=== PATIENT | female | born 1980 | race Caucasian/White ===

== ENCOUNTER 2017-03-01 12:06 | Inpatient (IN) | payer BC ==
[2017-03-01] MEDS ORDERED: NS 0.9% 1000 ML* 1,000 ML IV ONE (12:26)
[2017-03-01] MEDS ORDERED: Magnesium Sulfate 1 GM IV* 1 GM/100 ML BAG IV ONE (12:28)
[2017-03-01 12:49] LABS: ABS Basophils 0.1 10^3/ul (0-0.2); ABS Eosinophils 0.3 10^3/ul (0-0.6); ABS Monocytes 0.8 10^3/ul (0-0.8); ABS Neutrophils 11.7 10^3/ul (1.5-7.7); ABS Nucleated RBC 0 10^3/ul; Eosinophil % 2.5 % (0-6); Hematocrit 48 % (35-47); Hemoglobin 16.5 g/dl (12.0-16.0); Lymphocyte % 7.4 % (25-47); Mean Corpuscular HGB Conc 35 g/dl (31-36); Mean Corpuscular Hemoglobin 33 pg (27-31); Mean Corpuscular Volume 96 fL (80-97); Mean Platelet Volume 8 um3 (7.4-10.4); Nucleated Red Blood Cells % 0; Platelet Count 302 10^3/ul (150-450); Red Blood Count 4.97 10^6/ul (4.0-5.4); Red Cell Distribution Width 12 % (10.5-15)
[2017-03-01] MEDS ORDERED: Magnesium Sulfate 2 GM IV* 2 GM/50 ML BAG ONE (12:54)
[2017-03-01 13:00] LABS: EGFR Non-African American 105.8 (>60)
[2017-03-01] MEDS ORDERED: Magnesium Sulfate 2 GM IV* 2 GM/50 ML BAG IVPB ONE (13:01)
[2017-03-01] MEDS: Albuterol/Ipratropium NEB.SOL* Albuterol 2.5 MG/Ipratropium 0.5 MG 3 ML INH SCH ×2 (13:05→13:06)
--- NOTE | 2017-03-01 13:36 | RAD ---
Indication: Shortness of breath, asthma. Comparison: January 29, 2014 Technique: Upright AP 1300 hours Report: Elevated lung volumes. No focal pulmonary lesion, compelling alveolar consolidation, pleural effusion, pneumothorax. The heart, pulmonary vasculature, and mediastinal contours are unremarkable. IMPRESSION: Elevated lung volumes suggest potential obstructive lung disease corresponding with history of asthma. No compelling evidence for pneumonia or other acute intrathoracic process.
--- NOTE | 2017-03-01 15:04 | ED ---
Chico Clark Tecjoon, scribed for Shelton Lara MD on 03/01/17 at 1225 . Shortness of Breath - HPI Summary HPI Summary: This patient is a 37 year old female presenting to [facility] with a chief complaint of SOB since 3 days ago. Patient states she has asthma and is on prednisone. Patient has had an asthma attack for the past 3 days, worsening after she finished her prednisone. Symptoms aggravated by nothing. Symptoms alleviated by medication. Patient additionally reports productive cough with green phlegm, diaphoresis, wheezing. Patient denies fever, chills. Patient denies a PMHx of COPD. - History of Current Complaint Chief Complaint: EDShortnessOfBreath Time Seen by Provider: 03/01/17 12:15 Hx Obtained From: Patient Onset/Duration: Sudden Onset, Lasting Days - 3, Still Present, Worse Since - finishing prednisone Timing: Intermittent Episodes Lasting: Aggrevating Factors: Nothing Alleviating Factors: OTC Meds, Other - prednisone Associated Signs & Symptoms: Cough (Productive) - green phlegm, Wheezing, Diaphoresis - Allergy/Home Medications Allergies/Adverse Reactions: Allergies Allergy/AdvReac Type Severity Reaction Status Date / Time No Known Allergies Allergy Verified 01/29/14 08:07 PMH/Surg Hx/FS Hx/Imm Hx Previously Healthy: Yes Endocrine/Hematology History: Denies: Hx Diabetes Cardiovascular History: Denies: Hx Hypertension Respiratory History: Reports: Hx Asthma Denies: Hx Chronic Obstructive Pulmonary Disease (COPD) GI History: Denies: Hx Ulcer Sensory History: Reports: Hx Contacts or Glasses Opthamlomology History: Reports: Hx Contacts or Glasses - Surgical History Surgery Procedure, Year, and Place: [place] teeth x 4 removal - Immunization History Date of Tetanus Vaccine: UTD Date of Influenza Vaccine: NO Infectious Disease History: No Infectious Disease History: Denies: Hx Clostridium Difficile, Hx Hepatitis, Hx Human Immunodeficiency Virus (HIV), Hx of Known/Suspected MRSA, Hx Shingles, Hx Tuberculosis, Hx Known/ Suspected VRE, Hx Known/Suspected VRSA, History Other Infectious Disease, Traveled Outside the [place] in Last 30 Days - Family History Known Family History: Positive: Other - asthma; no fhx of gout Negative: Hypertension - Social History Alcohol Use: Weekly Hx Substance Use: No Substance Use Type: Reports: None Hx Tobacco Use: Yes Smoking Status (MU): Current Some Day Smoker Review of Systems Positive: Skin Diaphoresis. Negative: Fever, Chills Positive: Shortness Of Breath, Cough - productive, with green phlegm, Other - wheezing All Other Systems Reviewed And Are Negative: Yes Physical Exam - Summary Physical Exam Summary: VITAL SIGNS: Reviewed. GENERAL: Patient is a well developed and nourished female who is lying comfortable in the stretcher. HEAD AND FACE: Normocephalic EYES: PERRLA, EOMI x 2. EARS: Hearing grossly intact. MOUTH: Oropharynx within normal limits. NECK: Supple, trachea is midline, no adenopathy, no JVD, no carotid bruit. CHEST: Symmetric, no tenderness at palpation LUNGS: Bilateral diffuse wheezing. Able to speak in full sentences. CVS: Regular rate and rhythm, S1 and S2 present, no murmurs or gallops appreciated. ABDOMEN: Soft, non-tender. Bowel sounds are normal. No abdominal abnormal pulsations. EXTREMITIES: Full ROM in all major joints, no edema, no cyanosis or clubbing. NEURO: Alert and oriented x 3. No acute neurological deficits. Speech is normal and follows commands. SKIN: Dry and warm Triage Information Reviewed: Yes Vital Signs On Initial Exam: Initial Vitals Temp Pulse Resp BP Pulse Ox 98 F 119 26 121/64 90 03/01/17 12:12 03/01/17 12:12 03/01/17 12:12 03/01/17 12:12 03/01/17 12:12 Vital Signs Reviewed: Yes - [place]farlan Coma Scale Coma Scale Total: 15 Diagnostics - Vital Signs Vital Signs Temp Pulse Resp BP Pulse Ox 03/01/17 12:12 98 F 119 26 121/64 90 - Laboratory Lab Results: Lab Results 03/01/17 03/01/17 03/01/17 Range/Units 12:39 12:39 12:39 WBC 14.0 H (3.5-10.8) 10^3/ul RBC 4.97 (4.0-5.4) 10^6/ul Hgb 16.5 H (12.0-16.0) g/dl Hct 48 H (35-47) % MCV 96 (80-97) fL MCH 33 H (27-31) pg MCHC 35 (31-36) g/dl RDW 12 (10.5-15) % Plt Count 302 (150-450) 10^3/ul MPV 8 (7.4-10.4) um3 Neut % (Auto) 83.7 H (38-83) % Lymph % (Auto) 7.4 L (25-47) % [place] % (Auto) 6.0 (1-9) % Eos % (Auto) 2.5 (0-6) % Baso % (Auto) 0.4 (0-2) % Absolute Neuts (auto) 11.7 H (1.5-7.7) 10^3/ul Absolute Lymphs (auto) 1.0 (1.0-4.8) 10^3/ul Absolute Monos (auto) 0.8 (0-0.8) 10^3/ul Absolute Eos (auto) 0.3 (0-0.6) 10^3/ul Absolute Basos (auto) 0.1 (0-0.2) 10^3/ul Absolute Nucleated RBC 0 10^3/ul Nucleated RBC % 0 Sodium 136 (133-145) mmol/L Potassium 3.9 (3.5-5.0) mmol/L Chloride 103 (101-111) mmol/L Carbon Dioxide 24 (22-32) mmol/L Anion Gap 9 (2-11) mmol/L BUN 6 (6-24) mg/dL Creatinine 0.63 (0.51-0.95) mg/dL Est GFR ( Amer) 136.0 (>60) Est GFR (Non-Af Amer) 105.8 (>60) BUN/Creatinine Ratio 9.5 (8-20) Glucose 120 H (70-100) mg/dL Lactic Acid (0.5-2.0) mmol/L Calcium 9.9 (8.6-10.3) mg/dL Total Bilirubin 1.00 (0.2-1.0) mg/dL AST 19 (13-39) U/L ALT 31 (7-52) U/L Alkaline Phosphatase 72 (34-104) U/L Troponin I 0.00 (<0.04) ng/mL C-Reactive Protein 59.57 H (< 5.00) mg/L B-Natriuretic Peptide 46 ( - 100) pg/mL Total Protein 7.2 (6.4-8.9) g/dL Albumin 4.3 (3.2-5.2) g/dL Globulin 2.9 (2-4) g/dL Albumin/Globulin Ratio 1.5 (1-3) Influenza A (Rapid) (Negative) Influenza B (Rapid) (Negative) 03/01/17 03/01/17 Range/Units 12:39 13:32 WBC (3.5-10.8) 10^3/ul RBC (4.0-5.4) 10^6/ul Hgb (12.0-16.0) g/dl Hct (35-47) % MCV (80-97) fL MCH (27-31) pg MCHC (31-36) g/dl RDW (10.5-15) % Plt Count (150-450) 10^3/ul MPV (7.4-10.4) um3 Neut % (Auto) (38-83) % Lymph % (Auto) (25-47) % [place] % (Auto) (1-9) % Eos % (Auto) (0-6) % Baso % (Auto) (0-2) % Absolute Neuts (auto) (1.5-7.7) 10^3/ul Absolute Lymphs (auto) (1.0-4.8) 10^3/ul Absolute Monos (auto) (0-0.8) 10^3/ul Absolute Eos (auto) (0-0.6) 10^3/ul Absolute Basos (auto) (0-0.2) 10^3/ul Absolute Nucleated RBC 10^3/ul Nucleated RBC % Sodium (133-145) mmol/L Potassium (3.5-5.0) mmol/L Chloride (101-111) mmol/L Carbon Dioxide (22-32) mmol/L Anion Gap (2-11) mmol/L BUN (6-24) mg/dL Creatinine (0.51-0.95) mg/dL Est GFR ( Amer) (>60) Est GFR (Non-Af Amer) (>60) BUN/Creatinine Ratio (8-20) Glucose (70-100) mg/dL Lactic Acid 0.9 (0.5-2.0) mmol/L Calcium (8.6-10.3) mg/dL Total Bilirubin (0.2-1.0) mg/dL AST (13-39) U/L ALT (7-52) U/L Alkaline Phosphatase (34-104) U/L Troponin I (<0.04) ng/mL C-Reactive Protein (< 5.00) mg/L B-Natriuretic Peptide ( - 100) pg/mL Total Protein (6.4-8.9) g/dL Albumin (3.2-5.2) g/dL Globulin (2-4) g/dL Albumin/Globulin Ratio (1-3) Influenza A (Rapid) Negative (Negative) Influenza B (Rapid) Negative (Negative) Result Diagrams: 03/01/17 12:39 03/01/17 12:39 Lab Statement: Any lab studies that have been ordered have been reviewed, and results considered in the medical decision making process. - Radiology CXR Xray Interpretation: Positive (See Comments) - IMPRESSION: Elevated lung volumes suggest potential obstructive lung disease corresponding with history of asthma. No compelling evidence for pneumonia or other acute intrathoracic process. ED physician has reviewed this radiology report. Radiology Interpretation Completed By: Radiologist Course/Dx - Course Course Of Treatment: This patient is a 37 year old female presenting to [facility] with a chief complaint of SOB since 3 days ago. Patient states she has asthma and is on prednisone. Patient has had an asthma attack for the past 3 days, worsening after she finished her prednisone. Symptoms aggravated by nothing. Symptoms alleviated by medication. Patient additionally reports productive cough with green phlegm, diaphoresis, wheezing. Patient denies fever, chills. Patient denies a PMHx of COPD. CXR reveals, per radiologist, IMPRESSION: Elevated lung volumes suggest potential obstructive lung disease corresponding with history of asthma. No compelling evidence for pneumonia or other acute intrathoracic process. ED physician has reviewed this radiology report. Bloodwork Obtained. Urinalysis Obtained. In the ED course the patient was given Magnesium Sulfate, Albuterol. Patient becomes hypoxic w/o NC O2. We discussed patient care with Dr. Spence (Hospitalist) at 1416 and they agreed to accept the patient. Patient will be diagnosed with asthma exacerbation and will be admitted to the hospitalist. The patient is agreeable with this plan. - Diagnoses Differential Diagnosis/HQI/PQRI: Positive: Bronchitis, CHF, COPD Exacerbation, Pneumonia Provider Diagnoses: Asthma exacerbation - Physician Notifications Discussed Care of Patient With: Elsy Spence - Hospitalist Time Discussed With Above Provider: 14:16 - We discussed patient care with Dr. Spence (Hospitalist) at 1416 and they agreed to accept the patient Instructed by Provider To: Admit As Inpatient Discharge - Discharge Plan Condition: Stable Disposition: ADMITTED TO [facility] Referrals: Pat Chapman, ONLINE ADVERTISING DIRECTOR [Primary Care Provider] - The documentation as recorded by the Chico dumont Tecjoon accurately reflects the service I personally performed and the decisions made by , Shelton Lara MD.
[2017-03-01] MEDS ORDERED: Albuterol 2.5 MG/3 ML NEB.SOL* (0.083%) INH PRN (15:37)
[2017-03-01] MEDS ORDERED: Ondansetron INJ* 2 MG/ML VIAL IV PRN (15:45)
[2017-03-01] MEDS: Albuterol 2.5 MG/3 ML NEB.SOL* (0.083%) INH SCH ×2 (16:18→20:05)
[2017-03-01] MEDS ORDERED: Ipratropium 0.5MG/2.5ML NEB* 0.5 MG/2.5 ML NEB.SOLN INH PRN (16:48)
[2017-03-01] MEDS ORDERED: Levofloxacin 500 MG IVPREMIX(* 500 MG/100 ML BAG IVPB ONE (17:27)
[2017-03-01] MEDS: Levofloxacin 500 MG IVPREMIX(* 500 MG/100 ML BAG IVPB SCH (17:30)
[2017-03-01] MEDS: Acetaminophen TAB* 325 MG PO PRN (20:02)
[2017-03-01] MEDS: methylPREDNISolone SOD 40 MG* 1 ML VIAL IV SCH (20:03)
--- NOTE | 2017-03-01 21:51 | HP ---
CC: Pat Chapman NP * HISTORY AND PHYSICAL: DATE OF ADMISSION: 03/01/17 PROVIDER: Martina Rankin NP PRIMARY CARE PHYSICIAN: Pat Chapman NP ATTENDING PHYSICIAN WHILE IN THE HOSPITAL: Elsy Spence DO * (report dictated by Martina Rankin NP). CHIEF COMPLAINT: 1. Shortness of breath. 2. Asthma exacerbation. HISTORY OF PRESENT ILLNESS: Ms. Epperson is a 37-year-old female who carries a history of asthma. She is a current everyday smoker stating that she smokes 1 PPD. She comes to the emergency room today complaining of increased shortness of breath since Wednesday, states that she has been using multiple inhaler and nebulizer treatments at home with no relief. States that she has used 60 doses of albuterol in the last day with no relief of her shortness of breath. She states she has also used several doses of albuterol nebulizers and Atrovent nebulizers at home, still with no relief. She states on 02/09/17, she had similar symptoms, but not as severe and at that time she was seen by her primary care provider and started on a prednisone taper, she started at 60 mg and was tapered to 10. She states her last dose of prednisone was on and by wednesday she was having difficulty breathing. She states that her last treatment with an antibiotic was in November and at that time, she was treated with azithromycin. She states that since November, she has had 3 episodes of asthma exacerbation, this being her third and each time she has been placed on steroid therapy. While in the emergency room, she received albuterol and DuoNebs. She also received some magnesium IV and some Zofran for nausea. She had a chest x-ray which showed Radiologist's impression is elevated lung volumes suggestive of potential obstructive lung disease corresponding with history of asthma, no compelling evidence for pneumonia or other acute intrathoracic process. Due to her unrelieved shortness of breath and need for oxygen we were asked by the emergency room to evaluate her for admission. PAST MEDICAL HISTORY: Asthma. PAST SURGICAL HISTORY: [place] teeth extraction. MEDICATIONS: Home medications include; 1. Albuterol nebulizers as needed for shortness of breath. 2. Advair Diskus 500/50 twice a day. 3. Ventolin inhaler as needed for shortness of breath. 4. Atrovent nebulizer as needed, also for shortness of breath. ALLERGIES TO MEDICATIONS: She has no known drug allergies. FAMILY HISTORY: Zero history of coronary artery disease in the family. Father is a diabetic, insulin dependent, and mother has a history of lung cancer. SOCIAL HISTORY: The patient does state that she, despite her asthma, continues to smoke 1 pack per day. She states that she has not smoked in the past 3 days. Alcohol use, occasionally. No drug use. She currently works as a country sales manager. She is and has 2 children. She lives with her and 2 children. Surrogate decision maker in the event she is unable to make her own medical decisions is her , Mejia Epperson. Phone number [phone]. REVIEW OF SYSTEMS: There has been no documented fever. There was no significant weight change. There was no double vision. No ear drainage. She is not having any rhinorrhea. There is no sore throat. She does report mild chest pain with deep breath and coughing. She does also report shortness of breath. There is no abdominal pain. No nausea, vomiting or diarrhea. There is no dysuria or frequency. There was no seizures. No loss of consciousness. No pruritus or skin ulcerations. She does report that she has had chills. A review of 14 systems was completed and all others were negative. PHYSICAL EXAMINATION GENERAL: At this time, Ms. Epperson is a 37-year-old female. She is sitting upright on the stretcher. She appears to be in mild to moderate respiratory distress. She does have a moist productive cough and is able to speak in full sentences. VITAL SIGNS: Blood pressure 113/67, heart rate is 103, respiratory rate is 26, O2 saturation on 3 L nasal cannula is 97%. HEENT: Head is atraumatic, normocephalic. Eyes: EOMs are intact. Sclerae anicteric, not pale. Oral mucosa appears to be moist. NECK: Supple. LUNGS: Lungs are with expiratory wheezes bilaterally. There is a few scattered rhonchi. I:E ratio is 1:3. CARDIAC: Heart sounds S1, S2. Regular rate and rhythm. She is tachycardic. There are no murmurs, rubs, or gallops. ABDOMEN: Soft and nontender. Bowel sounds are present x4. EXTREMITIES: Pulses are +2 throughout. She is moving all 4 extremities with 5/ 5 strength. NEUROLOGIC: She is alert and oriented x3. Tongue is midline. Speech is clear. There are no gross focal deficits noted. SKIN: Intact. LABORATORY DATA/DIAGNOSTIC STUDIES: WBC is 14.0, hemoglobin 16.5, hematocrit is 48, platelet count is 302,000. Sodium 136, potassium 3.9, chloride 103, BUN is 6, creatinine 0.63, glucose was 120, lactic acid was 0.9. Calcium 9.9. Troponin was negative at 0.00. C-reactive protein was 59.57. BNP was 46. Flu A and B were negative. EKG shows sinus tachycardia at a rate of 118. Chest x-ray, radiologist's impression was elevated lung volumes suggestive of potential obstructive lung disease corresponding with history of asthma, no compelling evidence of pneumonia or other acute intrathoracic process. ASSESSMENT AND PLAN: Ms. Epperson is a 37-year-old female who presented to the ER today with complaints of increased shortness of breath and productive cough. We were asked to evaluate her because of her increased shortness of breath and need for oxygen supplementation. She will be admitted under observation status for: 1. Asthma exacerbation. We will place her on albuterol nebs q.4 hours and q.2 hours p.r.n. She will be placed on Solu-Medrol 40 mg IV q.12 hours. We will provide her with oxygen supplementation as needed to maintain oxygen saturations greater than 92%. She will be placed on Levaquin 500 mg IV q.24 hours. I will also put a consult in for Dr. Mcadams to consult on this patient due to her frequent episodes of asthma exacerbation. 2. Leukocytosis. I feel that the leukocytosis could be related to her recent steroid medication that she recently tapered. We will monitor her CBC. 3. FEN. She will be placed on a regular diet. 4. Code status. She is a full code. 5. DVT prophylaxis. She can ambulate ad manav. 6. Disposition. She will be admitted as an observation status. TIME SPENT: Time spent on this admission was 60 minutes, greater than half the time was spent [id number] with the patient obtaining my history and physical and the other half of the time has been going over my plan of care with the patient and implementing the plan of care. I have discussed this with my attending, Dr. Elsy Spence, and she is in agreement. MARTINA RANKIN, SALES MARKET LEADER [id number]/[facility] #: [id number] BETH DAVID HOSPITALMaury
[2017-03-02] MEDS: Albuterol 2.5 MG/3 ML NEB.SOL* (0.083%) INH SCH ×6 (00:03→20:42)
[2017-03-02] MEDS: Acetaminophen TAB* 325 MG PO PRN (07:25)
[2017-03-02] MEDS: methylPREDNISolone SOD 40 MG* 1 ML VIAL IV SCH ×2 (07:29→19:12)
[2017-03-02] MEDS ORDERED: Pneumococcal *Vac Polyvalent 0.5 ML VIAL IM ONE (09:00)
[2017-03-02] MEDS ORDERED: Influenza VAC *QUAD* 2017-18* 0.5 ML SYRINGE IM ONE (09:00)
[2017-03-02 11:15] LABS: Urine Appearance Clear; Urine Blood Negative (Negative); Urine Color Yellow; Urine Ketones Negative (Negative); Urine Protein Negative (Negative); Urine Specific Gravity 1.014 (1.010-1.030); Urine Urobilinogen Negative (Negative)
[2017-03-02] MEDS: Mometasone/Formoter 200/5 MDI INH SCH ×2 (12:28→20:44)
--- NOTE | 2017-03-02 12:36 | PN ---
Subjective Date of Service: 03/02/17 Interval History: Continues to c/o shortness of breath despite breathing treatments and steroids. States got minimal sleep last night. Denies fever, chills. Denies N/V/D or abd pain. Denies chest pain. Gwyn urinary frequency or urgency. Family History: Unchanged from Admission Social History: Unchanged from Admission Past Medical History: Unchanged from Admission Objective Active Medications: Acetaminophen (Tylenol Tab*) 650 mg PO Q4H PRN PRN Reason: FEVER/PAIN Last Admin: 03/02/17 07:25 Dose: 650 mg Albuterol (Ventolin 2.5 Mg/3 Ml Neb.Honey*) 2.5 mg INH Q2H PRN PRN Reason: SOB/WHEEZING Last Admin: 03/02/17 05:38 Dose: 2.5 mg Albuterol (Ventolin 2.5 Mg/3 Ml Neb.Honey*) 2.5 mg INH Q4H [facility] Last Admin: 03/02/17 12:27 Dose: 2.5 mg Levofloxacin/Dextrose (Levaquin 500 Mg Ivpremix(*)) 500 mg in 100 mls @ 100 mls /hr IVPB Q24H [facility] Last Admin: 03/01/17 17:30 Dose: 100 mls/hr Ipratropium Birney (Atrovent 0.5 Mg Neb.Honey*) 0.5 mg INH Q4H PRN PRN Reason: SOB/WHEEZING Methylprednisolone Sodium Succinate (Solu-Medrol 40 Mg) 40 mg IV Q12H [facility] Last Admin: 03/02/17 07:29 Dose: 40 mg Mometasone Furoate/Formoterol Fumar (Dulera 200/5 Mdi*) 1 puff INH BID [facility] Last Admin: 03/02/17 12:28 Dose: 1 puff Vital Signs - 8 hr 03/02/17 03/02/17 03/02/17 11:07 11:46 11:53 Temperature 98.5 F Pulse Rate 97 70 Respiratory 18 17 19 Rate Blood Pressure 122/74 (mmHg) O2 Sat by Pulse 94 97 Oximetry Oxygen Devices in Use Now: Nasal Cannula Appearance: appears tired, alert and oriented x 3. Eyes: No Scleral Icterus Ears/Nose/Mouth/Throat: Clear Oropharnyx, Mucous Membranes Moist Neck: NL Appearance and Movements; NL JVP, Trachea Midline Respiratory: Symmetrical Chest Expansion and Respiratory Effort, - - inspiratory and exp. wheezes t/o bilat . I:E ratio 1:3 few scattered rhonchi noted Cardiovascular: NL Sounds; No Murmurs; No JVD, RRR, No Edema Abdominal: NL Sounds; No Tenderness; No Distention Extremities: No Edema, No Clubbing, Cyanosis Skin: No Rash or Ulcers Neurological: Alert and Oriented x 3, NL Sensation, NL Gait, NL Muscle Strength and Tone Nutrition: Taking PO's Result Diagrams: 03/01/17 12:39 03/01/17 12:39 Additional Lab and Data: Lab Results 03/01/17 03/01/17 03/01/17 Range/Units 12:39 12:39 12:39 WBC 14.0 H (3.5-10.8) 10^3/ul RBC 4.97 (4.0-5.4) 10^6/ul Hgb 16.5 H (12.0-16.0) g/dl Hct 48 H (35-47) % MCV 96 (80-97) fL MCH 33 H (27-31) pg MCHC 35 (31-36) g/dl RDW 12 (10.5-15) % Plt Count 302 (150-450) 10^3/ul MPV 8 (7.4-10.4) um3 Neut % (Auto) 83.7 H (38-83) % Lymph % (Auto) 7.4 L (25-47) % [place] % (Auto) 6.0 (1-9) % Eos % (Auto) 2.5 (0-6) % Baso % (Auto) 0.4 (0-2) % Absolute Neuts (auto) 11.7 H (1.5-7.7) 10^3/ul Absolute Lymphs (auto) 1.0 (1.0-4.8) 10^3/ul Absolute Monos (auto) 0.8 (0-0.8) 10^3/ul Absolute Eos (auto) 0.3 (0-0.6) 10^3/ul Absolute Basos (auto) 0.1 (0-0.2) 10^3/ul Absolute Nucleated RBC 0 10^3/ul Nucleated RBC % 0 Sodium 136 (133-145) mmol/L Potassium 3.9 (3.5-5.0) mmol/L Chloride 103 (101-111) mmol/L Carbon Dioxide 24 (22-32) mmol/L Anion Gap 9 (2-11) mmol/L BUN 6 (6-24) mg/dL Creatinine 0.63 (0.51-0.95) mg/dL Est GFR ( Amer) 136.0 (>60) Est GFR (Non-Af Amer) 105.8 (>60) BUN/Creatinine Ratio 9.5 (8-20) Glucose 120 H (70-100) mg/dL Lactic Acid (0.5-2.0) mmol/L Calcium 9.9 (8.6-10.3) mg/dL Total Bilirubin 1.00 (0.2-1.0) mg/dL AST 19 (13-39) U/L ALT 31 (7-52) U/L Alkaline Phosphatase 72 (34-104) U/L Troponin I 0.00 (<0.04) ng/mL C-Reactive Protein 59.57 H (< 5.00) mg/L B-Natriuretic Peptide 46 ( - 100) pg/mL Total Protein 7.2 (6.4-8.9) g/dL Albumin 4.3 (3.2-5.2) g/dL Globulin 2.9 (2-4) g/dL Albumin/Globulin Ratio 1.5 (1-3) Influenza A (Rapid) (Negative) Influenza B (Rapid) (Negative) 03/01/17 03/01/17 Range/Units 12:39 13:32 WBC (3.5-10.8) 10^3/ul RBC (4.0-5.4) 10^6/ul Hgb (12.0-16.0) g/dl Hct (35-47) % MCV (80-97) fL MCH (27-31) pg MCHC (31-36) g/dl RDW (10.5-15) % Plt Count (150-450) 10^3/ul MPV (7.4-10.4) um3 Neut % (Auto) (38-83) % Lymph % (Auto) (25-47) % [place] % (Auto) (1-9) % Eos % (Auto) (0-6) % Baso % (Auto) (0-2) % Absolute Neuts (auto) (1.5-7.7) 10^3/ul Absolute Lymphs (auto) (1.0-4.8) 10^3/ul Absolute Monos (auto) (0-0.8) 10^3/ul Absolute Eos (auto) (0-0.6) 10^3/ul Absolute Basos (auto) (0-0.2) 10^3/ul Absolute Nucleated RBC 10^3/ul Nucleated RBC % Sodium (133-145) mmol/L Potassium (3.5-5.0) mmol/L Chloride (101-111) mmol/L Carbon Dioxide (22-32) mmol/L Anion Gap (2-11) mmol/L BUN (6-24) mg/dL Creatinine (0.51-0.95) mg/dL Est GFR ( Amer) (>60) Est GFR (Non-Af Amer) (>60) BUN/Creatinine Ratio (8-20) Glucose (70-100) mg/dL Lactic Acid 0.9 (0.5-2.0) mmol/L Calcium (8.6-10.3) mg/dL Total Bilirubin (0.2-1.0) mg/dL AST (13-39) U/L ALT (7-52) U/L Alkaline Phosphatase (34-104) U/L Troponin I (<0.04) ng/mL C-Reactive Protein (< 5.00) mg/L B-Natriuretic Peptide ( - 100) pg/mL Total Protein (6.4-8.9) g/dL Albumin (3.2-5.2) g/dL Globulin (2-4) g/dL Albumin/Globulin Ratio (1-3) Influenza A (Rapid) Negative (Negative) Influenza B (Rapid) Negative (Negative) Assess/Plan/Problems-Billing Assessment: This is a 37 y.o female that has a long standing history of asthma. She presented to the emergency room with increased shortness of breath and wheezing. She was requiring oxygen supplementation to keep her oxygen saturations above 90 %. The also reports that she continues to smoke 1 ppd despite her shortness of breath. - Patient Problems (1) Acute asthma exacerbation Current Visit: No Status: Acute Priority: High Onset Date: 01/29/14 Comment: Albuterol/ Atrovent Nebs Advair Oxygen support as needed to maintain o2 saturation above 92% Solumedrol 40 mg every 12 hours levaquin [address] Mcadams consulted (2) DVT prophylaxis Current Visit: Yes Status: Acute Code(s): SQD6443 - SNOMED Code(s): 077044252 Comment: ambulate ad manav (3) Full code status Current Visit: Yes Status: Acute Code(s): Z78.9 - OTHER SPECIFIED HEALTH STATUS SNOMED Code(s): 598037110 Status and Disposition: Inpatient, Continue supportive care possible discharge in AM
[2017-03-02] MEDS: Levofloxacin 500 MG IVPREMIX(* 500 MG/100 ML BAG IVPB SCH (16:13)
--- NOTE | 2017-03-02 20:31 | CONS ---
PULMONARY CONSULTATION REPORT: DATE OF CONSULT: 03/02/17 CONSULTATION REQUESTED BY: Martina Rankin NP REASON FOR CONSULT: Evaluation of asthma. HISTORY OF PRESENT ILLNESS: The patient is a 37-year-old female with a history of lifelong asthma from childhood. The patient is also current everyday smoker , smokes 1-pack per day. The patient reports stable asthma symptoms until recently. The patient usually reports one episode of bronchitis resulting in asthma exacerbation once a year. The patient denies allergies. The patient reports that she had her first asthma attack in November. She has received 3 rounds of prednisone since that time. Symptoms would improve while on prednisone and recur back again once she gets off prednisone. The patient was started on a prolonged taper recently. She has completed her taper 3 days prior to this current admission. The patient's symptoms started back again 3 days into completing the prednisone. The patient reports cough, chest tightness , inability to take deep breath and shortness of breath. The patient reports productive cough over the past 2 days. The patient denies fevers or chills. The patient denies any sick contacts. The patient denies GERD symptoms. The patient denies recent travel. The patient has nebulizers at home. She is on Advair. The patient reports compliance with Advair; however, develops thrush frequently with it. The patient reports in between her bronchitis or asthma exacerbation episodes she has never needed a rescue inhaler. The patient was started on IV steroids, bronchodilators, and antibiotics here. The patient reports mild improvement in her symptoms. PAST MEDICAL HISTORY: 1. Asthma. 2. Tobacco abuse. PAST SURGICAL HISTORY: [place] tooth extraction. MEDICATIONS AT HOME ON ADMISSION: 1. Albuterol nebulizer as needed. 2. Advair 500/50 twice a day. 3. Ventolin. 4. Atrovent nebulizer as needed. ALLERGIES: No known drug allergies. FAMILY HISTORY: Diabetes in father. Mother has a history of lung cancer. SOCIAL HISTORY: Current smoker, smokes 1 pack per day. No alcohol or drug abuse. She works as a membership sales representative. REVIEW OF SYSTEMS: All 14-systems reviewed and as per HPI. PHYSICAL EXAM: The patient is in bed, in no apparent distress, slightly anxious. Vital Signs: Temperature 98.2, pulse 70 beats per minute, respiratory rate of 19 per minute, O2 sat 97% on room air, blood pressure 118/66. HEENT: Pupils are equal, round, and reactive to light. Mucous membranes moist. Lungs : Expiratory wheezes bilaterally and scattered rhonchi. Cardiovascular: S1 and S2 present, regular. Abdomen: Soft, bowel sounds present. Extremities: Normal range of motion. Neurologic: No focal deficits. Skin: No rashes or bruits. DIAGNOSTIC STUDIES/LAB DATA: WBC count 14.0, hemoglobin 16.5, hematocrit 48, platelet count 302 with neutrophilia and no eosinophilia. Sodium 136, potassium 3.9, chloride 103, bicarb 24, normal anion gap, normal lactic acid level, CRP elevated at 59, BNP within normal limits, LFTs within normal limits. Chest x-ray was personally reviewed by me, no acute airspace opacities, evidence of hyperinflation. EKG shows sinus tachycardia at 118. IMPRESSION AND RECOMMENDATIONS: 37-year-old female, current smoker with history of asthma with acute asthma exacerbation and recurrent episodes of worsening asthma symptoms and failed outpatient therapy. The patient with minimal improvement, still continues to have significant wheeze bilaterally on auscultation. Continue with albuterol nebs q.4 hours and every 2 hours p.r.n. Continue with Solu-Medrol 40 mg IV q.12, not taper yet as she has significant wheezing. The patient has required O2 supplementation, currently on room air, saturating well, I do not suspect alternative etiology in her given significant wheezing on auscultation, leukocytosis could be secondary to recent steroid usage. Her asthma has been more active secondary to viral bronchitis and also current smoking status. Smoking cessation education and counseling was performed with the patient today that lasted 5 minutes. Consequences of smoking and interventions to quit smoking were discussed. Discussed worsening of asthma symptoms with smoking. She denies sleep concerns or gastroesophageal reflux disease symptoms. Agree with completing Levaquin for a 7-day course. No role for Singulair given no history of allergies. The patient will need outpatient PFTs and serological workup for rheumatological condition when she is off of prednisone. Thank you for allowing me to participate in the care of your patient. Will follow up with you. [id number]/CPS #: [id number] ASIM
[2017-03-03] MEDS: Albuterol 2.5 MG/3 ML NEB.SOL* (0.083%) INH SCH ×4 (00:43→12:35)
[2017-03-03] MEDS: Mometasone/Formoter 200/5 MDI INH SCH (07:42)
[2017-03-03] MEDS: methylPREDNISolone SOD 40 MG* 1 ML VIAL IV SCH (08:01)
[2017-03-03 08:09] VITALS: BP 119/82
[2017-03-03 08:49] LABS: ABS Basophils 0 10^3/ul (0-0.2); ABS Eosinophils 0 10^3/ul (0-0.6); ABS Lymphocytes 2.5 10^3/ul (1.0-4.8); ABS Monocytes 1.1 10^3/ul (0-0.8); ABS Neutrophils 9.6 10^3/ul (1.5-7.7); ABS Nucleated RBC 0 10^3/ul; Eosinophil % 0.2 % (0-6); Hematocrit 42 % (35-47); Hemoglobin 14.2 g/dl (12.0-16.0); Lymphocyte % 18.6 % (25-47); Mean Corpuscular HGB Conc 34 g/dl (31-36); Mean Corpuscular Hemoglobin 33 pg (27-31); Mean Corpuscular Volume 98 fL (80-97); Mean Platelet Volume 8 um3 (7.4-10.4); Nucleated Red Blood Cells % 0; Platelet Count 302 10^3/ul (150-450); Red Blood Count 4.27 10^6/ul (4.0-5.4); Red Cell Distribution Width 12 % (10.5-15); White Blood Count 13.2 10^3/ul (3.5-10.8)
--- NOTE | 2017-03-03 12:26 | PN ---
Progress Note - Progress Note Date of Service: 03/03/17 - Pulm f/u note Note: Pt seen and examined at bedside. Pt reports improvement in breathing. Is eager to go home. Cough is improved. Ambulated without much limitation. Is not needing O2 Active Medications Generic Name Dose Route Start Last Admin Trade Name Freq PRN Reason Stop Dose Admin Acetaminophen 650 mg 03/01/17 15:45 03/02/17 07:25 Tylenol Tab* PO 650 mg Q4H PRN Administration FEVER/PAIN Albuterol 2.5 mg 03/01/17 15:37 03/02/17 05:38 Ventolin 2.5 Mg/3 Ml Neb.Honey* INH 2.5 mg Q2H PRN Administration SOB/WHEEZING Albuterol 2.5 mg 03/01/17 16:00 03/03/17 07:41 Ventolin 2.5 Mg/3 Ml Neb.Honey* INH 2.5 mg Q4H ROBER Administration Levofloxacin/Dextrose 500 mg in 100 mls @ 100 mls/hr 03/01/17 17:00 03/02/17 16:13 Levaquin 500 Mg Ivpremix(*) IVPB 100 mls/hr Q24H ROBER Administration Ipratropium Kennedy 0.5 mg 03/01/17 16:48 Atrovent 0.5 Mg Neb.Honey* INH Q4H PRN SOB/WHEEZING Methylprednisolone Sodium Succinate 40 mg 03/01/17 19:00 03/03/17 08:01 Solu-Medrol 40 Mg IV 40 mg Q12H ROBER Administration Mometasone Furoate/Formoterol Fumar 1 puff 03/02/17 11:00 03/03/17 07:42 Dulera 200/5 Mdi* INH 1 puff BID ROBER Administration Vital Signs Temp Pulse Resp BP Pulse Ox 97.7 F 78 16 119/82 94 03/03/17 07:35 03/03/17 07:43 03/03/17 08:00 03/03/17 07:35 03/03/17 08:00 O/E: Pt in NAD HEENT: PERRLA, No JVD Lungs: Good air entry b/l, wheeze + on auscultation b/l CVS: S1, S2+, regular Abd; Soft, BS+ Ext: No edema, normal ROM Skin: No rash or bruise Neuro: Alert, oriented x 3, No focal defecits Laboratory Results - last 24 hr 03/03/17 08:21 WBC 13.2 H RBC 4.27 Hgb 14.2 Hct 42 MCV 98 H MCH 33 H MCHC 34 RDW 12 Plt Count 302 MPV 8 Neut % (Auto) 72.9 Lymph % (Auto) 18.6 L [place] % (Auto) 8.2 Eos % (Auto) 0.2 Baso % (Auto) 0.1 Absolute Neuts (auto) 9.6 H Absolute Lymphs (auto) 2.5 Absolute Monos (auto) 1.1 H Absolute Eos (auto) 0 Absolute Basos (auto) 0 Absolute Nucleated RBC 0 Nucleated RBC % 0 I/R: 37 y o f current smoker with h/o asthma a/w worsening SOB, failed out pt management. Pt with slight improvement today, less wheezing Will plan on d/c home today with 60mg of prednisone and slow taper by 10mg weekly Pt to have f/u appointment set up in pulmonary clinic in 4 weeks and will decide on further taper from that point Smoking cessation education reenforced c/w bronchodilators She will be switched to Dulera from Advair discus Pathophysiology of asthma was discussed Will need PFTs as out pt D/w Martina Rankin NP
[2017-03-03 14:26] LABS: EGFR Non-African American 114.1 (>60)
--- NOTE | 2017-03-03 17:07 | PN ---
Subjective Date of Service: 03/03/17 Interval History: Patient states that she feel better today. Denies any shortness of breath, does report mild occasional cough, no change since admission. Gwyn N/V/D or abd pain. Denies chest pain. Denies urinary frequency or urgency Family History: Unchanged from Admission Social History: Unchanged from Admission Past Medical History: Unchanged from Admission Objective Oxygen Devices in Use Now: None Appearance: alert, awake, appears comfortable , no distress Eyes: No Scleral Icterus, PERRLA Ears/Nose/Mouth/Throat: NL Teeth, Lips, Gums, Clear Oropharnyx, Mucous Membranes Moist Neck: NL Appearance and Movements; NL JVP, Trachea Midline Respiratory: Symmetrical Chest Expansion and Respiratory Effort, - - continues to have expiratory wheezes t/o bilat , improved from yesterday. Cardiovascular: NL Sounds; No Murmurs; No JVD, RRR, No Edema Abdominal: NL Sounds; No Tenderness; No Distention Extremities: No Edema, No Clubbing, Cyanosis Skin: No Rash or Ulcers Neurological: Alert and Oriented x 3, NL Sensation, NL Gait, NL Muscle Strength and Tone Nutrition: Taking PO's Result Diagrams: 03/03/17 08:21 03/03/17 08:21 Additional Lab and Data: Lab Results 03/01/17 03/01/17 03/01/17 Range/Units 12:39 12:39 12:39 WBC 14.0 H (3.5-10.8) 10^3/ul RBC 4.97 (4.0-5.4) 10^6/ul Hgb 16.5 H (12.0-16.0) g/dl Hct 48 H (35-47) % MCV 96 (80-97) fL MCH 33 H (27-31) pg MCHC 35 (31-36) g/dl RDW 12 (10.5-15) % Plt Count 302 (150-450) 10^3/ul MPV 8 (7.4-10.4) um3 Neut % (Auto) 83.7 H (38-83) % Lymph % (Auto) 7.4 L (25-47) % [place] % (Auto) 6.0 (1-9) % Eos % (Auto) 2.5 (0-6) % Baso % (Auto) 0.4 (0-2) % Absolute Neuts (auto) 11.7 H (1.5-7.7) 10^3/ul Absolute Lymphs (auto) 1.0 (1.0-4.8) 10^3/ul Absolute Monos (auto) 0.8 (0-0.8) 10^3/ul Absolute Eos (auto) 0.3 (0-0.6) 10^3/ul Absolute Basos (auto) 0.1 (0-0.2) 10^3/ul Absolute Nucleated RBC 0 10^3/ul Nucleated RBC % 0 Sodium 136 (133-145) mmol/L Potassium 3.9 (3.5-5.0) mmol/L Chloride 103 (101-111) mmol/L Carbon Dioxide 24 (22-32) mmol/L Anion Gap 9 (2-11) mmol/L BUN 6 (6-24) mg/dL Creatinine 0.63 (0.51-0.95) mg/dL Est GFR ( Amer) 136.0 (>60) Est GFR (Non-Af Amer) 105.8 (>60) BUN/Creatinine Ratio 9.5 (8-20) Glucose 120 H (70-100) mg/dL Lactic Acid (0.5-2.0) mmol/L Calcium 9.9 (8.6-10.3) mg/dL Total Bilirubin 1.00 (0.2-1.0) mg/dL AST 19 (13-39) U/L ALT 31 (7-52) U/L Alkaline Phosphatase 72 (34-104) U/L Troponin I 0.00 (<0.04) ng/mL C-Reactive Protein 59.57 H (< 5.00) mg/L B-Natriuretic Peptide 46 ( - 100) pg/mL Total Protein 7.2 (6.4-8.9) g/dL Albumin 4.3 (3.2-5.2) g/dL Globulin 2.9 (2-4) g/dL Albumin/Globulin Ratio 1.5 (1-3) Influenza A (Rapid) (Negative) Influenza B (Rapid) (Negative) 03/01/17 03/01/17 Range/Units 12:39 13:32 WBC (3.5-10.8) 10^3/ul RBC (4.0-5.4) 10^6/ul Hgb (12.0-16.0) g/dl Hct (35-47) % MCV (80-97) fL MCH (27-31) pg MCHC (31-36) g/dl RDW (10.5-15) % Plt Count (150-450) 10^3/ul MPV (7.4-10.4) um3 Neut % (Auto) (38-83) % Lymph % (Auto) (25-47) % [place] % (Auto) (1-9) % Eos % (Auto) (0-6) % Baso % (Auto) (0-2) % Absolute Neuts (auto) (1.5-7.7) 10^3/ul Absolute Lymphs (auto) (1.0-4.8) 10^3/ul Absolute Monos (auto) (0-0.8) 10^3/ul Absolute Eos (auto) (0-0.6) 10^3/ul Absolute Basos (auto) (0-0.2) 10^3/ul Absolute Nucleated RBC 10^3/ul Nucleated RBC % Sodium (133-145) mmol/L Potassium (3.5-5.0) mmol/L Chloride (101-111) mmol/L Carbon Dioxide (22-32) mmol/L Anion Gap (2-11) mmol/L BUN (6-24) mg/dL Creatinine (0.51-0.95) mg/dL Est GFR ( Amer) (>60) Est GFR (Non-Af Amer) (>60) BUN/Creatinine Ratio (8-20) Glucose (70-100) mg/dL Lactic Acid 0.9 (0.5-2.0) mmol/L Calcium (8.6-10.3) mg/dL Total Bilirubin (0.2-1.0) mg/dL AST (13-39) U/L ALT (7-52) U/L Alkaline Phosphatase (34-104) U/L Troponin I (<0.04) ng/mL C-Reactive Protein (< 5.00) mg/L B-Natriuretic Peptide ( - 100) pg/mL Total Protein (6.4-8.9) g/dL Albumin (3.2-5.2) g/dL Globulin (2-4) g/dL Albumin/Globulin Ratio (1-3) Influenza A (Rapid) Negative (Negative) Influenza B (Rapid) Negative (Negative) Assess/Plan/Problems-Billing Assessment: This is a 37 y.o female that has a long standing history of asthma. She presented to the emergency room with increased shortness of breath and wheezing. She was requiring oxygen supplementation to keep her oxygen saturations above 90 %. The also reports that she continues to smoke 1 ppd despite her shortness of breath. Improved today feeling better , respiratory status improved. wheezing improved - Patient Problems (1) Acute asthma exacerbation Status: Acute Priority: High Onset Date: 01/29/14 Comment: Albuterol/ Atrovent Nebs oxygen support as needed to maintain o2 saturation above 92% Will discharge with prednisone taper 60mg daily for 1 week then decrease by 10mg weekly levaquin 500 mg po daily for [address] Mcadams consulted- will follow up in 1 month as outpatient (2) DVT prophylaxis Status: Acute Code(s): YSG2336 - SNOMED Code(s): 524628808 Comment: ambulate ad manav (3) Full code status Status: Acute Code(s): Z78.9 - OTHER SPECIFIED HEALTH STATUS SNOMED Code(s) : 744060141 Status and Disposition: Discharge home Points of Discussion: Stop smoking Continue albuterol and Atrovent nebulizers as needed for shortness of breath predinsone taper 60 mg daily for 1 week and then decrease by 10mg weekly. Dulera 1 puff 2 times daily
--- NOTE | 2017-03-04 11:42 | DS ---
CC: Pat Chapman NP DISCHARGE SUMMARY: DATE OF ADMISSION: 03/01/17 DATE OF DISCHARGE: 03/03/17 PROVIDER: Martina Rankin NP ATTENDING PHYSICIAN WHILE IN THE HOSPITAL: Dr. Rojas (dictated by Martina Rankin NP) PRIMARY CARE PROVIDER: Pat Chapman NP PRIMARY DIAGNOSIS: Asthma exacerbation. SECONDARY DIAGNOSIS: No secondary diagnosis. STUDIES WHILE IN THE HOSPITAL: She had an echocardiogram that showed sinus tachycardia at a rate of 118. Chest x-ray: Radiologist's impression was elevated lung volume suggestive of potential obstructive l nancy disease corresponding with a history of asthma. No compelling evidence of pneumonia or other acu te intrathoracic process. DISCHARGE MEDICATIONS: 1. Levaquin 500 mg p.o. daily x5 days. 2. Albuterol nebulizer 1 neb q.4 hours as needed for shortness of breath. 3. ProAir inhaler 1 to 2 puffs every 2 to 4 hours as needed for shortness of breath. 4. Prednisone taper, we will start at 60 mg p.o. daily x1 week and decrease by 10 mg weekly until se en in followup with Dr. Mcadams. 5. Dulera 1 puff twice daily. Continued meds: Atrovent nebulizer as needed for shortness of breath. HISTORY OF PRESENT ILLNESS: Ms. Epperson is a 37-year-old female who carries a history of asthma, who continues to be an everyday smoker, reporting she smokes approximately 1 pack per day, who came to [facility] emergency room complaining of increased shortness of breath on Wednesday. She states that she has been using multiple inhalers and nebulizers at home with no relief. States that she used 60 doses of an albuterol in the last day with no relief of her shortness of breath. She also used several doses of Atrovent nebulizers at home with still no relief. She states that this is her third episode of ast hma exacerbation since November. Each time she has been placed on a steroid taper dosing and after com pletion of the steroids, approximately 3 to 4 days after completion, she develops asthma exacerbation again. While in the emergency room, she received albuterol and DuoNeb. She also received magnesium IV and Zofran for nausea. Chest x-ray showed radiologist's impression, elevated lung field suggesti ve of potential obstructive lung disease corresponding with a history of asthma but no compelling ankit dence of pneumonia or other acute intrathoracic process. While in the hospital, she was placed on IV steroids. She received Solu-Medrol 40 mg IV b.i.d. She was placed on albuterol and Atrovent nebuli zers q.4 hours as needed for shortness of breath. She was also placed on Dulera 1 puff b.i.d. I als o placed her on IV Levaquin 500 mg daily, her respiratory status improved each day during her stay. Today, she continues to have some expiratory wheezes, but they have improved since her admission. Moses butler is feeling better. She is not requiring any oxygen to maintain oxygen saturations. Her oxygen sat urations today were 94% on room air. At this point, I feel that she is stable to be discharged home. She also did during this hospital stay have a consult with Pulmonology and Dr. Mcadams consulted and her recommendations were appreciated. Ms. Epperson is stable for discharge home today. Vital signs are as follows: O2 saturation is 94% on room air, respirations are 16, heart rate is 78, blood pressure was 119/82. FOLLOWUP: Ms. Epperson will follow up with her primary care provider in 4 to 7 days. She will follow up with Dr. Mcadams, the email manager, in 1 month. Her appointment is on 04/02/17 at 9 a.m. She wa s instructed to return to the emergency room for any increased shortness of breath. I advised her st rongly to stop smoking. This is a summary of a report of her medical stay here in the hospital, for further details please se e the entire medical record. TIME SPENT: Time spent for this discharge was approximately 60 minutes, greater than half that time was spent with the patient discussing her discharge plans and instructio ns for home. CONDITION AT DISCHARGE: Stable. MARTINA RANKIN NP [id number]/[facility] #: [id number]
== END 2017-03-03 14:30 | disposition home or self-care (01) | DRG 141 ==
LOC: ED 12:06 → MED 15:21 → OBSVTOIN 03-02 10:50
PROVIDERS: ADMIT Hospitalist; ATTEND Internal Medicine
DX: J45.901 Unspecified asthma with (acute) exacerbation (principal); D72.829 Elevated white blood cell count, unspecified; F17.210 Nicotine dependence, cigarettes, uncomplicated; Z79.899 Other long term (current) drug therapy; Z83.3 Family history of diabetes mellitus; Z80.1 Family history of malignant neoplasm of trachea, bronchus and lung
CPT/HCPCS: 36415; 71010; 80048; 80053; 81003; 83605; 83880; 84484; 85025; 86140; 87040; 87502; 90686; 90732; 93005; 94640; 94760; A9270-GY; G0378; J1956; J2920; J3475

== ENCOUNTER 2017-06-19 19:24 | Inpatient (IN) | payer BC ==
[2017-06-19] MEDS ORDERED: Albuterol/Ipratropium NEB.SOL* Albuterol 2.5 MG/Ipratropium 0.5 MG 3 ML ONE (19:28)
[2017-06-19] MEDS ORDERED: Acetaminophen TAB* 325 MG ONE (19:42)
[2017-06-19] MEDS ORDERED: Albuterol/Ipratropium NEB.SOL* Albuterol 2.5 MG/Ipratropium 0.5 MG 3 ML INH ONE (19:42)
[2017-06-19 19:54] LABS: ABS Basophils 0.1 10^3/ul (0-0.2); ABS Eosinophils 0.5 10^3/ul (0-0.6); ABS Lymphocytes 2.6 10^3/ul (1.0-4.8); ABS Monocytes 1.2 10^3/ul (0-0.8); ABS Neutrophils 14.1 10^3/ul (1.5-7.7); ABS Nucleated RBC 0 10^3/ul; Eosinophil % 2.8 % (0-6); Hematocrit 45 % (35-47); Hemoglobin 15.6 g/dl (12.0-16.0); Lymphocyte % 13.9 % (25-47); Mean Corpuscular HGB Conc 35 g/dl (31-36); Mean Corpuscular Hemoglobin 33 pg (27-31); Mean Corpuscular Volume 96 fL (80-97); Mean Platelet Volume 7.7 um3 (7.4-10.4); Nucleated Red Blood Cells % 0.1; Platelet Count 365 10^3/ul (150-450); Red Cell Distribution Width 12 % (10.5-15); White Blood Count 18.5 10^3/ul (3.5-10.8)
[2017-06-19] MEDS ORDERED: Ondansetron INJ* 2 MG/ML VIAL IV ONE (19:58)
[2017-06-19] MEDS ORDERED: Ondansetron INJ* 2 MG/ML VIAL ONE (19:59)
[2017-06-19 20:14] LABS: EGFR Non-African American 79.1 (>60)
--- NOTE | 2017-06-19 20:33 | RAD ---
Indication: Shortness of breath. Single frontal view of the chest performed at 2000 hours was reviewed. Comparison is made with previous exam dated March 01, 2017. No mediastinal shift is noted. Heart is of normal size and configuration. Lung montes de oca appear clear. IMPRESSION: NO ACTIVE CARDIOPULMONARY DISEASE IS NOTED.
[2017-06-19] MEDS ORDERED: Acetaminophen TAB* 325 MG PO ONE (20:38)
[2017-06-19] MEDS ORDERED: Al Hydrox/Mg Hydrox/Simet LIQ* 30 ML UDC PO PRN (22:34)
[2017-06-19] MEDS ORDERED: Acetaminophen TAB* 325 MG PO PRN (22:34)
[2017-06-19] MEDS: methylPREDNISolone SOD 40 MG* 1 ML VIAL IV SCH (22:59)
[2017-06-19] MEDS: Enoxaparin(*) 40 MG/0.4 ML SYR SUBCUT SCH (23:29)
--- NOTE | 2017-06-20 01:40 | HP ---
HISTORY AND PHYSICAL: DATE OF ADMISSION: 06/19/17 TIME OF ADMISSION: 10:30 p.m. PRIMARY CARE PHYSICIAN: Pat Chapman. SECURITY INSTALLATION SALES TECHNICIAN: Dr. Candice Mcadams CHIEF COMPLAINT: Shortness of breath. HISTORY OF PRESENT ILLNESS: This is a 37-year-old female with history of asthma and tobacco abuse, who presents today with shortness of breath that began this morning. She was feeling well yesterday and then awoke from sleep this morning with a cough; however, she felt okay and went about her day. She went grocery shopping and was able to walk around the grocery store, unloaded groceries into the house then she was cooking around 1 p.m. when she began to feel more short of breath. She went into the bedroom to do a breathing treatment and called her and who called EMS and she was brought to the emergency department. When EMS arrived, her pulse ox was recorded as 89%, but she was given 3 DuoNeb treatments, 2 rounds of epinephrine, Decadron, and magnesium, and transported to the emergency department. In the ED, she was placed on Vapotherm for work of breathing and is feeling much better at this time. Regarding her asthma history, she was most recently on prednisone for a 10-day course that ended a jrdq-awq-c-half ago. After she stopped the course of prednisone a aesm-rzt-s-half ago, she did feel better until this morning. She continues to smoke; however, has been cutting back and this morning smoked 1 cigarette. She has not travelled recently. She has no known environmental allergies. She does have a dog. She took the dog to the [employer] on , so was exposed to other animals. She has no occupational exposures. She denies any recent illness, although she does note that her and kids had an upper respiratory infection over the past week. She did note a sore throat over the past week, but has no other upper respiratory symptoms. She denies any recent fevers or chills and did have a cough this morning, but did not have any sputum. She saw Pulmonology at the end of April and was changed from Advair to Breo. Today, she was using albuterol and ipratropium separately and tried both, which did not help. PAST MEDICAL HISTORY: Asthma. HOME MEDICATIONS: 1. Breo Ellipta 200/25 one inhaled daily 2. Ventolin HFA 1 to 2 puffs inhaled q.4 p.r.n. wheezing. 3. DuoNeb nebulizer t.i.d. p.r.n. wheezing. ALLERGIES: No known drug allergies. FAMILY HISTORY: Her father and sister both have asthma. SOCIAL HISTORY: She works in sales at a desk job. She smokes cigarettes, approximately 1 cigarette to a half pack per day. She uses no other drugs. She lives with her and 2 children. PHYSICAL EXAMINATION GENERAL: Alert, well-appearing female, in no distress. She is using no accessory muscles. She is able to speak comfortably in full sentences. VITAL SIGNS: Blood pressure 118/76, pulse ox 99% on 100% FiO2, respiratory rate 21, heart rate 98, and temperature 98 degrees. HEENT: Pupils are equal, round, and reactive to light. No nystagmus. Moist mucosa. No pharyngeal exudates or erythema. NECK: No cervical or supraclavicular lymphadenopathy. CHEST: Regular rate and rhythm. No murmurs. PMI nondisplaced. Good airway movement with prolonged expiratory phase and diffuse scattered expiratory wheezes. No egophony. ABDOMEN: Soft, nontender, nondistended. EXTREMITIES: No rashes. No clubbing. No cyanosis. No edema. DIAGNOSTIC STUDIES/LAB DATA: White blood cells 18.5, hemoglobin 15.6, platelets 365. 76% neutrophils, 13.9% lymphocytes. ABG; 7.32/70/21. Sodium 139, potassium 3.9, chloride 104, bicarb 25, glucose 185, BUN 8, creatinine 0.81. Pulmonary function tests, 04/13/17, suggestive of severe obstructive ventilatory defect with reversibility to bronchodilators. No evidence of restriction. Evidence of airtrapping on plethysmography. Diffusing capacity corrected to normal when adjusted for alveolar ventilation. ASSESSMENT AND PLAN: This is a 37-year-old female with severe obstructive lung disease, who presents with shortness of breath and increased work of breathing that began today. 1. Acute hypoxic respiratory failure most likely secondary to an asthma exacerbation in the setting of poorly controlled severe persistent asthma and ongoing tobacco abuse with a possible URI exposure as well as pet dander exposure. She is currently on Vapotherm at 40 L and 100% FiO2. She will be admitted to the ICU with an attempt to wean down her oxygen requirement. Her workup breathing right now is quite comfortable; however, I did discuss intubation with her and this is something she would be agreeable to if she should decompensate. I am continuing Solu-Medrol and standing nebulizers at this time. I will not use antibiotics as I believe her tachypnea, tachycardia, and leukocytosis can be explained by her asthma exacerbation and not related to an underlying infection. 2. Severe persistent asthma, hold off on Breo while she is receiving standing nebulizers. May consider a pulmonology consult if she does not improve quickly. 3. DVT prophylaxis, Lovenox daily. 4. Disposition, admit to the medical service in ICU. [id number]/CPS #: [id number] ASIM
--- NOTE | 2017-06-20 03:41 | ED ---
Tiffany Clark Jason, scribed for Camilla Nunez MD on 06/19/17 at 1945 . Shortness of Breath - HPI Summary HPI Summary: This patient is a 37 year old F BIBA to [facility] with a chief complaint of SOB since 1400 today. She states she has been feeling SOB at home and started doing her own treatments. She is on her 3rd duoneb and was given 2 rounds of subcutaneous~epipen injection and 2 grams of mag sulfate. The patient rates the pain 0/10 in severity. Symptoms aggravated by nothing. Symptoms alleviated by respiratory treatment. Patient reports SOB, and headache. Patient denies fevers , chills, coughing. Patient has been admitted to [facility] for asthma in the past. - History of Current Complaint Hx Obtained From: Patient Onset/Duration: Gradual Onset, Lasting Hours - since 1400 today, Still Present Timing: Constant Aggrevating Factors: Nothing Alleviating Factors: Other - Duoneb Associated Signs & Symptoms: Negative - fevers, chills, coughing - Allergy/Home Medications Allergies/Adverse Reactions: Allergies Allergy/AdvReac Type Severity Reaction Status Date / Time No Known Allergies Allergy Verified 06/19/17 22:43 PMH/Surg Hx/FS Hx/Imm Hx Previously Healthy: No Endocrine/Hematology History: Denies: Hx Diabetes Cardiovascular History: Denies: Hx Hypertension Respiratory History: Reports: Hx Asthma Denies: Hx Chronic Obstructive Pulmonary Disease (COPD) GI History: Denies: Hx Ulcer Sensory History: Reports: Hx Contacts or Glasses Denies: Hx Hearing Aid Opthamlomology History: Reports: Hx Contacts or Glasses - Surgical History Surgery Procedure, Year, and Place: [place] teeth x 4 removal - Immunization History Date of Tetanus Vaccine: UTD Date of Influenza Vaccine: NO Infectious Disease History: Denies: Hx Clostridium Difficile, Hx Hepatitis, Hx Human Immunodeficiency Virus (HIV), Hx of Known/Suspected MRSA, Hx Shingles, Hx Tuberculosis, Hx Known/ Suspected VRE, Hx Known/Suspected VRSA, History Other Infectious Disease - Family History Known Family History: Positive: Other - asthma; no fhx of gout Negative: Hypertension - Social History Alcohol Use: Weekly Hx Substance Use: No Substance Use Type: Reports: None Hx Tobacco Use: Yes Smoking Status (MU): Current Some Day Smoker Review of Systems Negative: Fever, Chills Positive: Shortness Of Breath. Negative: Cough Positive: Headache All Other Systems Reviewed And Are Negative: Yes Physical Exam - Summary Physical Exam Summary: GENERAL: ~Patient is a well developed and nourished female who is lying comfortable in the stretcher. ~Patient is not in any acute respiratory distress. HEAD AND FACE: Normocephalic EYES: PERRLA, EOMI x 2. EARS: Hearing grossly intact. MOUTH: Oropharynx within normal limits. NECK: Supple, trachea is midline, no adenopathy, no JVD, no carotid bruit. CHEST: Symmetric, no tenderness at palpation LUNGS: Poor air entry bilaterally with diffuse expiratory wheezing. CVS: Tachycardic, S1 and S2 present, no murmurs or gallops appreciated. ABDOMEN: Soft, non-tender. Bowel sounds are normal. No abdominal abnormal pulsations. EXTREMITIES: Full ROM in all major joints, no edema, no cyanosis or clubbing. NEURO: Alert and oriented x 3. No acute neurological deficits. Speech is normal and follows commands. SKIN: Dry and warm Triage Information Reviewed: Yes Vital Signs Reviewed: Yes Diagnostics - Laboratory Result Diagrams: 06/19/17 19:40 06/19/17 19:40 Lab Statement: Any lab studies that have been ordered have been reviewed, and results considered in the medical decision making process. - Radiology CXR Radiology Interpretation Completed By: Radiologist - CXR reveals, per radiologist, NO ACTIVE CARDIOPULMONARY DISEASE IS NOTED. ED physician has reviewed this radiology report. - EKG 1948 Cardiac Rate: Tachycardia EKG Rhythm: Sinus Tachycardia - [address] Segment: Normal Ectopy: None Course/Dx - Course Course Of Treatment: Patient presents to [facility] in respiratory distress secondary to asthma exacerbation. She was given 3 rounds of breathing treatment. In [facility] she was started on vapotherm. Assessment/Plan: We reviewed the blood work which shows leukocytosis with a WBC of 18. Initial ABG showed a pH of 7.32 with a p02 of 70 and normal pCO2. CXR shows no acute process. Patient is currently stable on vapotherm. I discussed the case with Dr. Palomino (hospitalist), who recommended admission into the ICU. Patient is stable for admission. Patient is agreeable with this plan. Diagnosis of asthma exacerbation and respiratory distress. - Diagnoses Provider Diagnoses: Acute asthma exacerbation, Respiratory distress - Physician Notifications Discussed Care of Patient With: Salome Palomino Time Discussed With Above Provider: 20:55 Instructed by Provider To: Admit As Inpatient - Critical Care Time Critical Care Time: 30-74 min Discharge - Sign-Out/Discharge Documenting (check all that apply): Discharge - Discharge Plan Condition: Stable Disposition: ADMITTED TO [facility] documentation as recorded by the Tiffany dumont Jason accurately reflects the service I personally performed and the decisions made by , Camilla Nunez MD.
[2017-06-20] MEDS: Albuterol/Ipratropium NEB.SOL* Albuterol 2.5 MG/Ipratropium 0.5 MG 3 ML INH SCH ×6 (04:27→20:35)
[2017-06-20] MEDS: methylPREDNISolone SOD 40 MG* 1 ML VIAL IV SCH ×3 (05:50→22:35)
[2017-06-20 06:05] LABS: ABS Basophils 0 10^3/ul (0-0.2); ABS Eosinophils 0 10^3/ul (0-0.6); ABS Lymphocytes 0.5 10^3/ul (1.0-4.8); ABS Monocytes 0.1 10^3/ul (0-0.8); ABS Neutrophils 8.5 10^3/ul (1.5-7.7); ABS Nucleated RBC 0 10^3/ul; Eosinophil % 0 % (0-6); Hematocrit 43 % (35-47); Lymphocyte % 5.8 % (25-47); Mean Corpuscular HGB Conc 35 g/dl (31-36); Mean Corpuscular Hemoglobin 33 pg (27-31); Mean Corpuscular Volume 96 fL (80-97); Mean Platelet Volume 7.7 um3 (7.4-10.4); Nucleated Red Blood Cells % 0; Platelet Count 310 10^3/ul (150-450); Red Blood Count 4.52 10^6/ul (4.0-5.4); Red Cell Distribution Width 12 % (10.5-15); White Blood Count 9.2 10^3/ul (3.5-10.8)
[2017-06-20 06:24] LABS: EGFR Non-African American 98.5 (>60)
--- NOTE | 2017-06-20 08:42 | PN ---
Subjective Date of Service: 06/20/17 Interval History: Pt is feeling better today than yesterday but currently states she feels her breathing is tight. She is not coughing or bringing up any sputum. Objective Active Medications: Acetaminophen (Tylenol Tab*) 650 mg PO Q4H PRN PRN Reason: FEVER/PAIN Al Hydrox/Mg Hydrox/Simethicone (Maalox Plus*) 30 ml PO Q6H PRN PRN Reason: INDIGESTION Albuterol/Ipratropium (Duoneb (Albuterol 2.5 Mg/Ipratropium 0.5 Mg)) 1 neb INH Q4H ROBER Enoxaparin Sodium (Lovenox(*)) 40 mg SUBCUT Q24H [facility] Last Admin: 06/19/17 23:29 Dose: 40 mg Methylprednisolone Sodium Succinate (Solu-Medrol 40 Mg) 40 mg IV Q8H [facility] Last Admin: 06/20/17 05:50 Dose: 40 mg Vital Signs - 8 hr 06/20/17 06/20/17 06/20/17 00:45 01:00 01:01 Temperature Pulse Rate 88 103 90 Respiratory 18 16 17 Rate Blood Pressure 106/67 116/73 (mmHg) O2 Sat by Pulse 99 97 99 Oximetry 06/20/17 06/20/17 06/20/17 01:30 02:00 02:30 Temperature Pulse Rate 98 84 82 Respiratory 17 18 20 Rate Blood Pressure 123/79 110/66 102/61 (mmHg) O2 Sat by Pulse 98 100 98 Oximetry 06/20/17 06/20/17 06/20/17 03:00 03:01 03:30 Temperature Pulse Rate 78 84 81 Respiratory 16 18 17 Rate Blood Pressure 113/78 114/72 (mmHg) O2 Sat by Pulse 100 100 98 Oximetry 06/20/17 06/20/17 06/20/17 04:00 04:01 04:30 Temperature 98 F Pulse Rate 69 69 78 Respiratory 18 18 15 Rate Blood Pressure 90/60 109/69 (mmHg) O2 Sat by Pulse 99 100 100 Oximetry 06/20/17 06/20/17 06/20/17 05:00 05:01 05:30 Temperature Pulse Rate 80 82 86 Respiratory 21 20 19 Rate Blood Pressure 106/65 123/82 (mmHg) O2 Sat by Pulse 99 99 100 Oximetry 06/20/17 06/20/17 06/20/17 06:00 06:01 06:30 Temperature Pulse Rate 66 69 72 Respiratory 18 18 19 Rate Blood Pressure 115/72 97/55 (mmHg) O2 Sat by Pulse 99 100 100 Oximetry 06/20/17 06/20/17 06/20/17 07:00 07:01 07:33 Temperature Pulse Rate 77 79 Respiratory 19 16 18 Rate Blood Pressure 122/76 (mmHg) O2 Sat by Pulse 98 99 Oximetry 06/20/17 07:41 Temperature 97.6 F Pulse Rate Respiratory Rate Blood Pressure (mmHg) O2 Sat by Pulse Oximetry Oxygen Devices in Use Now: High Flow Heated Nasal Cannula Appearance: Young female sitting up in bed, NAD Eyes: No Scleral Icterus Ears/Nose/Mouth/Throat: Mucous Membranes Moist Respiratory: Symmetrical Chest Expansion and Respiratory Effort, - - breath sounds are tight with few expiratory wheezes Cardiovascular: NL Sounds; No Murmurs; No JVD, RRR, No Edema Abdominal: NL Sounds; No Tenderness; No Distention Extremities: No Clubbing, Cyanosis Skin: No Rash or Ulcers, No Nodules or Sclerosis Neurological: Alert and Oriented x 3 Result Diagrams: 06/20/17 05:45 06/20/17 05:45 Microbiology and Other Data: Microbiology 06/19/17 23:20 Nasal Screen MRSA (PCR)(DARRION) - Final Nasal Mrsa Not Detected Assess/Plan/Problems-Billing Ms Epperson is a 37 yo F who has a h/o asthma and tobacco abuse who presented to the ER with c/o sudden severe SOB and was found to be in acute hypoxic respiratory failure secondary to asthma exacerbation. - Patient Problems (1) Acute asthma exacerbation Current Visit: Yes Status: Acute Comment: The patient is improved from presentation but still sounding tight. Continue vapotherm now for work of breathing. Change nebs to q4hr standing. Continue solumedrol for now but possibly change management expert to prednisone tomorrow. If no improvement tomorrow will get Pulm consult. Hold off on Abx as no clear signs of infection. WBC count elevation on admission likely stress reaction as it has normalized without treatment. (2) Tobacco abuse Current Visit: Yes Status: Acute Code(s): Z72.0 - TOBACCO USE SNOMED Code( s): 606840599 Comment: Continue to encourage smoking cessation. The patient states she is working on quitting. (3) DVT prophylaxis Current Visit: Yes Status: Acute Code(s): YVV2383 - SNOMED Code(s): 803768420 Comment: sandi (4) Full code status Current Visit: Yes Status: Acute Code(s): Z78.9 - OTHER SPECIFIED HEALTH STATUS SNOMED Code(s): 775041940
[2017-06-20] MEDS: Enoxaparin(*) 40 MG/0.4 ML SYR SUBCUT SCH (22:35)
[2017-06-21] MEDS: Albuterol/Ipratropium NEB.SOL* Albuterol 2.5 MG/Ipratropium 0.5 MG 3 ML INH SCH ×7 (00:40→20:01)
[2017-06-21] MEDS: methylPREDNISolone SOD 40 MG* 1 ML VIAL IV SCH ×3 (06:13→21:46)
--- NOTE | 2017-06-21 08:28 | PN ---
Subjective Date of Service: 06/21/17 Interval History: Feels tired from waking up for nebs at night. Denies antibiotic use for "a long time". Has had asthma x 30 yrs Objective Active Medications: Acetaminophen (Tylenol Tab*) 650 mg PO Q4H PRN PRN Reason: FEVER/PAIN Last Admin: 06/20/17 20:13 Dose: 650 mg Al Hydrox/Mg Hydrox/Simethicone (Maalox Plus*) 30 ml PO Q6H PRN PRN Reason: INDIGESTION Albuterol/Ipratropium (Duoneb (Albuterol 2.5 Mg/Ipratropium 0.5 Mg)) 1 neb INH Q4H [facility] Last Admin: 06/21/17 04:33 Dose: 1 neb Enoxaparin Sodium (Lovenox(*)) 40 mg SUBCUT Q24H [facility] Last Admin: 06/20/17 22:35 Dose: 40 mg Methylprednisolone Sodium Succinate (Solu-Medrol 40 Mg) 40 mg IV Q8H [facility] Last Admin: 06/21/17 06:13 Dose: 40 mg Vital Signs - 8 hr 06/21/17 06/21/17 06/21/17 00:30 00:43 01:00 Temperature Pulse Rate 86 85 Respiratory 24 17 18 Rate Blood Pressure 110/72 115/74 (mmHg) O2 Sat by Pulse 97 93 Oximetry 06/21/17 06/21/17 06/21/17 01:01 01:30 02:00 Temperature Pulse Rate 90 93 89 Respiratory 19 38 27 Rate Blood Pressure 106/68 108/70 (mmHg) O2 Sat by Pulse 95 95 94 Oximetry 06/21/17 06/21/17 06/21/17 02:01 02:30 03:00 Temperature Pulse Rate 93 86 95 Respiratory 29 20 21 Rate Blood Pressure 112/68 105/72 (mmHg) O2 Sat by Pulse 96 97 96 Oximetry 06/21/17 06/21/17 06/21/17 03:01 03:30 04:00 Temperature 98.2 F Pulse Rate 78 81 88 Respiratory 19 18 19 Rate Blood Pressure 102/63 97/65 (mmHg) O2 Sat by Pulse 98 96 93 Oximetry 06/21/17 06/21/17 06/21/17 04:01 04:30 05:00 Temperature Pulse Rate 85 86 97 Respiratory 19 18 18 Rate Blood Pressure 110/73 117/76 (mmHg) O2 Sat by Pulse 94 96 95 Oximetry 06/21/17 06/21/17 06/21/17 05:01 05:30 06:00 Temperature Pulse Rate 96 96 117 Respiratory 22 17 24 Rate Blood Pressure 106/77 107/74 (mmHg) O2 Sat by Pulse 96 95 96 Oximetry 06/21/17 06/21/17 06/21/17 06:01 07:00 07:01 Temperature Pulse Rate 97 86 77 Respiratory 24 19 19 Rate Blood Pressure 106/65 (mmHg) O2 Sat by Pulse 95 97 96 Oximetry Oxygen Devices in Use Now: High Flow Nasal Cannula Appearance: 37 yo f in nAD, AAOx3 Eyes: No Scleral Icterus, PERRLA Ears/Nose/Mouth/Throat: NL Teeth, Lips, Gums, Mucous Membranes Moist Neck: NL Appearance and Movements; NL JVP, Trachea Midline Respiratory: Symmetrical Chest Expansion and Respiratory Effort, - - diffuse rhonchi in L mid lung and bibnasiliar wheezes Cardiovascular: NL Sounds; No Murmurs; No JVD, RRR Abdominal: NL Sounds; No Tenderness; No Distention, No Hepatosplenomegaly Lymphatic: No Cervical Adenopathy Extremities: No Edema, No Clubbing, Cyanosis Skin: No Rash or Ulcers, No Nodules or Sclerosis Neurological: Alert and Oriented x 3, NL Muscle Strength and Tone Result Diagrams: 06/20/17 05:45 06/20/17 05:45 Microbiology and Other Data: Microbiology 06/19/17 23:20 Nasal Screen MRSA (PCR)([facility]) - Final Nasal Mrsa Not Detected Assess/Plan/Problems-Billing Ms Epperson is a 37 yo F who has a h/o asthma and tobacco abuse who presented to the ER with c/o sudden severe SOB and was found to be in acute hypoxic respiratory failure secondary to asthma exacerbation. - Patient Problems (1) Acute asthma exacerbation Comment: The patient is improving daily.Change nebs to q4hr standing when awake. Continue solumedrol . Although there are no clear signs of infection will satrt Azithromycin for antiinflammatory properties (2) DVT prophylaxis Comment: lovenox (3) Full code status (4) Tobacco abuse Comment: Counseled to quit x 4 min on 06/21/17 Status and Disposition: inpatient
[2017-06-21] MEDS: Azithromycin IV(*) 500 MG in NS 0.9% 250 ML* 250 ML IVPB SCH (09:50)
[2017-06-21] MEDS ORDERED: Albuterol/Ipratropium NEB.SOL* Albuterol 2.5 MG/Ipratropium 0.5 MG 3 ML INH SCH (16:00)
[2017-06-21] MEDS: Mometasone/Formoter 100/5 MDI INH SCH (20:01)
[2017-06-21] MEDS: Enoxaparin(*) 40 MG/0.4 ML SYR SUBCUT SCH (21:48)
[2017-06-21] MEDS: Benzonatate CAP* 100 MG PO PRN ×2 (23:12→23:13)
[2017-06-22] MEDS: Albuterol/Ipratropium NEB.SOL* Albuterol 2.5 MG/Ipratropium 0.5 MG 3 ML INH SCH ×4 (01:27→19:42)
[2017-06-22] MEDS: Mometasone/Formoter 100/5 MDI INH SCH ×2 (08:22→19:43)
[2017-06-22] MEDS: Benzonatate CAP* 100 MG PO PRN ×2 (08:34→20:29)
[2017-06-22] MEDS: Azithromycin IV(*) 500 MG in NS 0.9% 250 ML* 250 ML IVPB SCH (08:34)
[2017-06-22] MEDS: methylPREDNISolone SOD 40 MG* 1 ML VIAL IV SCH (08:34)
[2017-06-22] MEDS ORDERED: Albuterol 2.5 MG/3 ML NEB.SOL* (0.083%) INH PRN (12:13)
--- NOTE | 2017-06-22 12:21 | PN ---
Subjective Date of Service: 06/22/17 Interval History: Pt examined today at the bedside. She states she is feeling better. States that she is improving. Admits to CASH but states improved from admission. Denies chest pain and denies abdominal pain. ROS-denies fever, denies chills, denies abdominal pain, denies nausea, denies vomiting, denies lightheadedness, denies loc, denies chest pain, admits to CASH, review of 11 systems completed all others negative, Objective Active Medications: Acetaminophen (Tylenol Tab*) 650 mg PO Q4H PRN PRN Reason: FEVER/PAIN Last Admin: 06/20/17 20:13 Dose: 650 mg Al Hydrox/Mg Hydrox/Simethicone (Maalox Plus*) 30 ml PO Q6H PRN PRN Reason: INDIGESTION Albuterol (Ventolin 2.5 Mg/3 Ml Neb.Honey*) 2.5 mg INH Q2H PRN PRN Reason: SOB/WHEEZING Albuterol/Ipratropium (Duoneb (Albuterol 2.5 Mg/Ipratropium 0.5 Mg)) 1 neb INH [id number] AWAKE [facility] Last Admin: 06/22/17 08:22 Dose: 1 neb Azithromycin (Zithromax Tab*) 250 mg PO DAILY [facility] Benzonatate (Tessalon Cap*) 100 mg PO TID PRN PRN Reason: COUGH Last Admin: 06/22/17 08:34 Dose: 100 mg Enoxaparin Sodium (Lovenox(*)) 40 mg SUBCUT Q24H [facility] Last Admin: 06/21/17 21:48 Dose: Not Given Mometasone Furoate/Formoterol Fumar (Dulera 100/5 Mdi*) 2 puff INH BID [facility] Last Admin: 06/22/17 08:22 Dose: 2 puff Prednisone (Deltasone Tab*) 60 mg PO DAILY [facility] Vital Signs - 8 hr 06/22/17 06/22/17 06/22/17 07:45 08:00 08:24 Temperature 98.4 F Pulse Rate 88 87 Respiratory 16 16 16 Rate Blood Pressure 134/101 (mmHg) O2 Sat by Pulse 99 99 Oximetry 06/22/17 06/22/17 06/22/17 09:28 11:16 11:18 Temperature 98.0 F Pulse Rate 96 85 Respiratory 16 Rate Blood Pressure 133/80 118/74 (mmHg) O2 Sat by Pulse 97 98 93 Oximetry Oxygen Devices in Use Now: Nasal Cannula Appearance: 37 y/o female patient sitting in bed, NAD, Eyes: No Scleral Icterus, PERRLA Ears/Nose/Mouth/Throat: NL Teeth, Lips, Gums Neck: NL Appearance and Movements; NL JVP Respiratory: Symmetrical Chest Expansion and Respiratory Effort, - - wheezing noted throughout, Cardiovascular: NL Sounds; No Murmurs; No JVD Abdominal: NL Sounds; No Tenderness; No Distention Extremities: No Edema Skin: No Rash or Ulcers Neurological: Alert and Oriented x 3 Lines/Tubes/Other Access: Clean, Dry and Intact Peripheral IV Result Diagrams: 06/20/17 05:45 06/20/17 05:45 Microbiology and Other Data: Microbiology 06/19/17 23:20 Nasal Screen MRSA (PCR)([facility]) - Final Nasal Mrsa Not Detected Assess/Plan/Problems-Billing Ms Epperson is a 37 yo F who has a h/o asthma and tobacco abuse who presented to the ER with c/o sudden severe SOB and was found to be in acute hypoxic respiratory failure secondary to asthma exacerbation. - Patient Problems (1) Acute asthma exacerbation Current Visit: Yes Status: Acute Comment: The patient is improved today. Change nebs to q6hr standing when awake. Change solumederol to po prednisone . Continue PO azithro for anti-inflammatory properties, wean o2 as tolerated, on RA as of one hour ago, still wheezing would like to keep overnight, (2) DVT prophylaxis Current Visit: Yes Status: Acute Code(s): [id number] - SNOMED Code(s): 881889826 Comment: lovenox (3) Full code status Current Visit: Yes Status: Acute Code(s): Z78.9 - OTHER SPECIFIED HEALTH STATUS SNOMED Code(s): 876924633 (4) Tobacco abuse Current Visit: Yes Status: Acute Code(s): Z72.0 - TOBACCO USE SNOMED Code( s): 210671178 Comment: Counseled to quit x 4 min on 06/21/17 Status and Disposition: inpatient Home when medically stable
[2017-06-22] MEDS: predniSONE TAB* 20 MG PO SCH (20:19)
[2017-06-22] MEDS: Enoxaparin(*) 40 MG/0.4 ML SYR SUBCUT SCH (21:35)
[2017-06-23] MEDS: Albuterol/Ipratropium NEB.SOL* Albuterol 2.5 MG/Ipratropium 0.5 MG 3 ML INH SCH ×3 (01:52→13:16)
[2017-06-23] MEDS: Mometasone/Formoter 100/5 MDI INH SCH (07:39)
[2017-06-23] MEDS: predniSONE TAB* 20 MG PO SCH (08:08)
[2017-06-23 08:12] LABS: ABS Basophils 0 10^3/ul (0-0.2); ABS Eosinophils 0 10^3/ul (0-0.6); ABS Lymphocytes 2.4 10^3/ul (1.0-4.8); ABS Monocytes 0.8 10^3/ul (0-0.8); ABS Neutrophils 10.1 10^3/ul (1.5-7.7); ABS Nucleated RBC 0 10^3/ul; Eosinophil % 0 % (0-6); Hematocrit 43 % (35-47); Hemoglobin 14.7 g/dl (12.0-16.0); Lymphocyte % 18.1 % (25-47); Mean Corpuscular HGB Conc 34 g/dl (31-36); Mean Corpuscular Hemoglobin 33 pg (27-31); Mean Corpuscular Volume 96 fL (80-97); Mean Platelet Volume 7.8 um3 (7.4-10.4); Nucleated Red Blood Cells % 0.1; Platelet Count 308 10^3/ul (150-450); Red Blood Count 4.46 10^6/ul (4.0-5.4); Red Cell Distribution Width 12 % (10.5-15); White Blood Count 13.3 10^3/ul (3.5-10.8)
[2017-06-23 08:31] LABS: EGFR Non-African American 118.7 (>60)
[2017-06-23] MEDS ORDERED: Azithromycin TAB* 250 MG PO SCH (09:00)
[2017-06-23 11:19] VITALS: BP 130/77
--- NOTE | 2017-06-23 18:38 | DS ---
CC: Pat Chapman* DISCHARGE SUMMARY: DATE OF ADMISSION: 06/19/17 DATE OF DISCHARGE: 06/23/17 PRIMARY CARE PROVIDER: Pat Chapman. DISCHARGE DIAGNOSIS: Acute hypoxemic respiratory failure due to asthma exacerbation. SECONDARY DIAGNOSES: 1. History of asthma. 2. History of smoking. MEDICATIONS AT DISCHARGE: Include: 1. Azithromycin 250 mg daily for a total of 3 days and stop. 2. Albuterol nebulizer on a p.r.n. basis. 3. Albuterol inhaler on a p.r.n. basis. 4. Tessalon Perles 100 mg 3 times a day p.r.n. 5. Atrovent nebulizer on a p.r.n. basis. 6. Breo-Ellipta 200/5 one puff b.i.d. 7. Prednisone taper 10 mg tablets, patient to take 4 tablets daily for 2 days, then 3 tablets daily for 2 days, then 2 tablets daily for 2 days and 1 tablet daily for 2 days, then stop. LABORATORY DATA AND STUDIES PERFORMED DURING THE HOSPITAL STAY: Include: On 06/23/17, white blood cell count of 13.3, hemoglobin of 14.7, hematocrit of 43 and platelets of 308. ABG at admission showed pH of 7.32, pCO2 of 42, pO2 of 70. On 06/23/17, sodium 138, potassium 3.9, chloride 103, carbon dioxide of 26, BUN 10, creatinine 0.57. Portable chest x-ray on admission, impression "no active cardiopulmonary disease noted." HOSPITALIZATION COURSE: Nunu Epperson is a 37-year-old female with history of asthma, who is also a smoker who presented to the hospital complaining of shortness of breath and upper respiratory infection symptoms and was noted to be in acute hypoxemic respiratory failure, requiring high flow oxygen in the intensive care unit. Patient was treated in the intensive care unit for a couple of days and once her hypoxemia improved, she was transferred to the medical floor. Eventually she was able to be liberated from oxygen. By the time of discharge, she was back to room air, oxygenating 97%.She was placed on azithromycin for antiinflammatory properties, there was no clear-cut evidence of pneumonia. Patient is recommended to follow up with her primary care provider in approximately 4 to 7 days. PHYSICAL EXAMINATION: At the time of discharge, vitals: Blood pressure of 130/ 77, heart rate of 92 and regular, respiratory rate 14, oxygen saturation 96% on room air, temperature is 99.0. General: This is a very pleasant 37-year-old female who is in no acute distress. Alert, awake, and oriented x3. HEENT: Head is atraumatic, normocephalic. Eyes: Pupils are equal, reactive to light and accommodation. Oropharynx is clear. Mucosa moist. Neck: Supple, no JVD. No bruits bilaterally. Cardiovascular: Regular rate and rhythm. No murmurs. Respiratory: Clear to auscultation bilaterally. Scant rhonchi noted at bilateral bases, right more than left. Abdomen: Soft, nontender, bowel sounds present in all quadrants. Extremities: There is no edema. Pulses +2 bilaterally. No clubbing or cyanosis. Neuro Evaluation: Speech clear. Cranial nerves II through XII grossly intact. Motor strength is 5/5 bilaterally. Please note that this is a short summary of patient's hospitalization. Please refer to further medical records for details. TIME SPENT: Approximately 40 minutes were spent on the patient's discharge. [id number]/[facility] #: [id number] [facility] CENTERMaury
== END 2017-06-23 13:10 | disposition home or self-care (01) | DRG 133 ==
LOC: ED 19:24 → ICU 22:34 → MED 06-21 14:20
PROVIDERS: ADMIT Internal Medicine; ATTEND Internal Medicine
PROC: 5A09457 Assistance with Respiratory Ventilation, 24-96 Consecutive Hours, Continuous Positive Airway Pressure (ICD-10-PCS; principal; 2017-06-19)
DX: J96.01 Acute respiratory failure with hypoxia (principal); J45.901 Unspecified asthma with (acute) exacerbation; F17.210 Nicotine dependence, cigarettes, uncomplicated; Z79.899 Other long term (current) drug therapy; Z82.5 Family history of asthma and other chronic lower respiratory diseases
CPT/HCPCS: 36415; 36600; 71045; 80048; 80053; 82803; 84484; 84702; 85025; 87641; 93005; 94640; 94760; 99285; A9270-GY; J0456; J1650; J2405; J2920; J7512

== ENCOUNTER 2018-02-12 11:47 | Emergency (ER) | payer BC ==
[2018-02-12 11:55] VITALS: BP 129/90
[2018-02-12] MEDS ORDERED: Lidocaine 2% PF * 5 ML VIAL INJ ONE (12:12)
--- NOTE | 2018-02-12 12:14 | UC ---
Laceration HPI - HPI Summary HPI Summary: While skiing this morning pt's skis came off and she rolled over them somehow, lacerating her knee. Was able to ski the rest of the way no problem, but noticed hole in her ski pants when she got to the bottom. Is UTD on Tdap, otherwise feeling well. - History Of Current Complaint Chief Complaint: UCLaceration Stated Complaint: R KNEE LAC Time Seen by Provider: 02/12/18 11:59 Hx Last Menstrual Period: 12/30/15 Laceration Location: Knee Mechanism Of Injury: Sharp Trauma Onset/Duration: Sudden Onset Severity: Mild Pain Intensity: 2 - Allergies/Home Medications Allergies/Adverse Reactions: Allergies Allergy/AdvReac Type Severity Reaction Status Date / Time No Known Allergies Allergy Verified 02/12/18 11:54 Home Medications: Home Medications Fluticasone/Vilanterol MDI(NF) [Breo Ellipta MDI (NF)] 1 puff INH DAILY [History Confirmed 02/12/18] PMH/Surg Hx/FS Hx/Imm Hx Respiratory History: Asthma - Surgical History Surgical History: Yes Surgery Procedure, Year, and Place: [place] teeth x 4 removal - Family History Known Family History: Positive: Other - asthma; no fhx of gout Negative: Hypertension - Social History Lives: With Family Alcohol Use: Weekly Substance Use Type: None Smoking Status (MU): Light Every Day Tobacco Smoker Type: Cigarettes Household Exposure Type: Cigarettes Cessation Counseling: Patient Advised to Stop - Immunization History Most Recent Influenza Vaccination: MARCH 2017 Most Recent Tetanus Shot: <10years Most Recent Pneumonia Vaccination: MARCH 2017 Review of Systems All Other Systems Reviewed And Are Negative: Yes Constitutional: Positive: Negative Skin: Positive: Other - laceration Eyes: Positive: Negative ENT: Positive: Negative Respiratory: Positive: Negative Cardiovascular: Positive: Negative Gastrointestinal: Positive: Negative Genitourinary: Positive: Negative Motor: Positive: Negative Neurovascular: Positive: Negative Musculoskeletal: Positive: Negative Neurological: Positive: Negative Psychological: Positive: Negative Is Patient Immunocompromised?: No Physical Exam Triage Information Reviewed: Yes Appearance: Well-Appearing, Well-Nourished Vital Signs: Initial Vital Signs Temp 97.3 F 02/12/18 11:52 Pulse 112 02/12/18 11:52 Resp 18 02/12/18 11:52 BP 129/90 02/12/18 11:52 Pulse Ox 100 02/12/18 11:52 Vital Signs Reviewed: Yes Eye Exam: Normal Eyes: Positive: Conjunctiva Clear ENT Exam: Normal ENT: Positive: Normal ENT inspection, Hearing grossly normal, TMs normal Neck exam: Normal Neck: Positive: Supple, Nontender Respiratory Exam: Normal Respiratory: Positive: Chest non-tender, Lungs clear, Normal breath sounds, No respiratory distress, No accessory muscle use Cardiovascular Exam: Normal Cardiovascular: Positive: RRR, No Murmur Musculoskeletal Exam: Normal Musculoskeletal: Positive: Strength Intact, ROM Intact Neurological Exam: Normal Neurological: Positive: Alert Psychological Exam: Normal Skin Exam: Other - 3cm lac on R lateral knee. No active bleeding. Laceration Repair - Laceration Repair 1 Description: Linear Laceration Size After Repair: Length (cm) - 3, Width (mm) - 0, Depth (mm) - 0 Type Injection: Local Anesthesia Used: 2.0% Lido - 5mL Closure Material: Warba - #3 Closure Method: Single Layer Laceration Course/Dx - Diagnosis Provider Diagnosis: Laceration of right knee, Skiing accident Discharge - Sign-Out/Discharge Documenting (check all that apply): Patient Departure All imaging exams completed and their final reports reviewed: No Studies - Discharge Plan Condition: Stable Disposition: HOME Patient Education Materials: Staple Care (ED) Referrals: Pat Chapman NP [Primary Care Provider] - 02/23/18 Additional Instructions: See your primary care provider or return here for staple removal in 10-12 days. - Billing Disposition and Condition Condition: STABLE Disposition: Home
== END 2018-02-12 12:47 | disposition home or self-care (01) ==
LOC: UCEAST 11:47
DX: S81.001A Unspecified open wound, right knee, initial encounter (principal); J45.909 Unspecified asthma, uncomplicated; F17.210 Nicotine dependence, cigarettes, uncomplicated; W19.XXXA Unspecified fall, initial encounter; Y93.23 Activity, snow (alpine) (downhill) skiing, snowboarding, sledding, tobogganing and snow tubing; Y92.9 Unspecified place or not applicable
CPT/HCPCS: 12002; 99211; G0463

== ENCOUNTER 2018-02-24 09:31 | Emergency (ER) | payer BC ==
[2018-02-24 09:36] VITALS: BP 113/81
--- NOTE | 2018-02-24 09:39 | UC ---
HPI Wound/Suture Re-check - HPI Summary HPI Summary: Patient presents to urgent care to have his abad removed from her right knee. Abad were placed 02/12 wound with good approximate patient. Patient with mild edema discomfort. Patient denies any erythema, drainage, fevers or chills. Patient is not taken any analgesia. No leg paresthesias. Tetanus is up-to-date. Patient's medications reviewed this visit. - History Of Current Complaint Chief Complaint: UCLaceration Stated Complaint: STAPLE REMOVAL Time Seen by Provider: 02/24/18 09:38 Hx Obtained From: Patient, Medical Records Hx Last Menstrual Period: 02/12/18 Severity: Mild Pain Intensity: 1 - Allergies/Home Medications Allergies/Adverse Reactions: Allergies Allergy/AdvReac Type Severity Reaction Status Date / Time No Known Allergies Allergy Verified 02/24/18 09:37 PMH/Surg Hx/FS Hx/Imm Hx Previously Healthy: Yes - Surgical History Surgical History: Yes Surgery Procedure, Year, and Place: [place] teeth x 4 removal - Family History Known Family History: Positive: Other - asthma; no fhx of gout, Non-Contributory Negative: Hypertension - Social History Lives: With Family Alcohol Use: Weekly Substance Use Type: None Smoking Status (MU): Light Every Day Tobacco Smoker Type: Cigarettes Household Exposure Type: Cigarettes - Immunization History Most Recent Influenza Vaccination: MARCH 2017 Most Recent Tetanus Shot: <10years Most Recent Pneumonia Vaccination: MARCH 2017 Review of Systems All Other Systems Reviewed And Are Negative: Yes Skin: Positive: Other - abad right kmee Physical Exam - Summary Physical Exam Summary: Vital Signs Reviewed: Yes A+Ox3, no distress Eyes: Conjunctiva Clear ENT: Hearing grossly normal neck: supple Respiratory: Positive: No respiratory distress, No accessory muscle use Cardiovascular: skin color reflect adequate perfusion Musculoskeletal Exam: VERA x 4 without difficulty + SLE + full flexion of knee Neurological: Positive: Alert, ambulatory without difficulty Psychological: Positive: Normal Response To Family Skin: Positive: no rash, no ecchymosis, right knee wound c/d/i well approximated no erythema, drainage, fluctuance, tenderness Removed 3 abad without difficulty covered with steristrip as over flexion surface Vital Signs: Initial Vital Signs Temp 98 F 02/24/18 09:33 Pulse 110 02/24/18 09:33 Resp 20 02/24/18 09:33 BP 113/81 02/24/18 09:33 Pulse Ox 100 02/24/18 09:33 Course/Dx - Course Course Of Treatment: Pt with abad right knee, placed 02/12. wound c/d/i. abad removed without difficulty. steri strip. pt tolerated well. reviewed wound care with pt. motrin/apap - Diagnosis Provider Diagnosis: Removal of staple, Visit for wound check Discharge - Sign-Out/Discharge Documenting (check all that apply): Patient Departure All imaging exams completed and their final reports reviewed: No Studies - Discharge Plan Condition: Stable Disposition: HOME Patient Education Materials: Steristralex (ED) Referrals: Pat Chapman NP [Primary Care Provider] - Additional Instructions: - okay to alternate ibuprofen (Advil, Motrin) and tylenol every 3 hours for pain - keep wound clean and dry - the steri strip will fall off on their own in 2-3 days. Okay to re-apply as instructed - contact your doctor or return with questions or concerns - Billing Disposition and Condition Condition: STABLE Disposition: Home
[2018-02-24] MEDS ORDERED: Benzoin Compound STICK ONE (09:43)
[2018-02-24] MEDS: Benzoin Compound STICK TOPICAL ONE (09:52)
== END 2018-02-24 09:55 | disposition home or self-care (01) ==
LOC: UCEAST 09:31
DX: X58.XXXD Exposure to other specified factors, subsequent encounter (principal); S81.011D Laceration without foreign body, right knee, subsequent encounter; F17.210 Nicotine dependence, cigarettes, uncomplicated
CPT/HCPCS: 99211; G0463